=== PATIENT | male | born 1955 | race Caucasian/White ===

== ENCOUNTER 2017-04-02 18:49 | Inpatient (IN) | payer BC, MEDICAID ==
[~2017-04-02] VITALS: Ht 152.4 cm; Wt 101.5 kg
[2017-04-02 18:55] VITALS: Ht 152.4 cm; Wt 101.5 kg
[2017-04-02] MEDS ORDERED: SOD CHLORIDE 0.9% 1,000 ML IV STA (19:56)
[2017-04-02] MEDS ORDERED: ONDANSETRON 4 MG INJ IV STA ×2 (19:56→21:38)
[2017-04-02] MEDS ORDERED: FAMOTIDINE 20 MG INJ INJ STA (19:56)
[2017-04-02 20:27] LABS: ADD SCAN DIFF NO
[2017-04-02 20:30] LABS: BASOPHILS % 0.2 % (0.0-2.0); EOSINOPHILS % 0.1 % (0.0-7.0); HEMATOCRIT 41.7 % (42.0-52.0); HEMOGLOBIN 13.9 g/dl (14.0-18.0); LYMPHOCYTES # 2.3 10^3/ul (0.8-2.9); LYMPHOCYTES % 14.5 % (15.0-51.0); MEAN CORPUSCULAR HEMOGLOBIN 30.6 pg (29.0-33.0); MEAN CORPUSCULAR HGB CONC 33.3 g/dl (32.0-37.0); MEAN CORPUSCULAR VOLUME 91.9 fl (82.0-101.0); MEAN PLATELET VOLUME 9.7 fl (7.4-10.4); MONOCYTE # 1.4 10^3/ul (0.3-0.9); MONOCYTES % 9.1 % (0.0-11.0); NEUTROPHIL # 11.7 10^3/ul (1.6-7.5); NEUTROPHILS % 75.5 % (39.0-77.0); PLATELET COUNT 344 10^3/UL (140-415); RED BLOOD COUNT 4.54 10^6/ul (4.70-6.10); RED CELL DISTRIBUTION WIDTH 13.5 % (11.5-14.5); WHITE BLOOD COUNT 15.5 10^3/ul (4.8-10.8)
[2017-04-02 20:46] LABS: INR 0.98
[2017-04-02] MEDS ORDERED: RANI150T5 PO (20:46)
[2017-04-02] MEDS ORDERED: FOLI-49 PO (20:46)
[2017-04-02 20:47] LABS: PARTIAL THROMBOPLASTIN TIME 26.1 Sec (25.0-35.0)
[2017-04-02] MEDS ORDERED: ASPI-664 PO (20:47)
[2017-04-02] MEDS ORDERED: SIMV40TA2 PO (20:47)
[2017-04-02] MEDS ORDERED: METO50TA16 PO (20:48)
[2017-04-02] MEDS ORDERED: CHOL20003 PO (20:49)
[2017-04-02 20:51] LABS: ALANINE AMINOTRANSFERASE 29 IU/L (13-69); ALBUMIN 4.6 g/dl (3.3-4.9); ALBUMIN/GLOBULIN RATIO 1.43; ALKALINE PHOSPHATASE 49 IU/L (42-121); ANION GAP 15 (8-16); ASPARTATE AMINO TRANSFERASE 19 IU/L (15-46); BILIRUBIN,INDIRECT 0.1 mg/dl (0-1.1); BILIRUBIN,TOTAL 0.1 mg/dl (0.2-1.3); BLOOD UREA NITROGEN 35 mg/dl (7-20); CALCIUM 9.7 mg/dl (8.4-10.2); CARBON DIOXIDE 26 mmol/L (21-31); CHLORIDE 103 mmol/L (97-110); CREATININE 1.13 mg/dl (0.61-1.24); GLUCOSE 124 mg/dl (70-220); POTASSIUM 4.6 mmol/L (3.5-5.1); SODIUM 139 mmol/L (135-144); TOTAL PROTEIN 7.8 g/dl (6.1-8.1)
[2017-04-02] MEDS ORDERED: RAMI5CAP46 PO (20:52)
[2017-04-02 21:02] LABS: TROPONIN-I < 0.012 ng/ml (0.00-0.12)
--- NOTE | 2017-04-02 21:12 | RADRPT ---
PROCEDURE: XR Chest. CLINICAL INDICATION: Upper GI bleed. TECHNIQUE: Single frontal chest x-ray. COMPARISON: [id number] FINDINGS: The patient status post sternotomy.. The heart is normal size. There is no CHF. The lungs are hyp erinflated.. Minimal bibasilar atelectasis.. There is no pleural effusion. There is no pneumothora x. The osseous structures are unremarkable. IMPRESSION: Cardiomegaly. Hyperinflation. Minimal bibasilar atelectasis RPTAT: HMVK .Roberto Dumont MD, MD Date Time Electronically viewed and signed by .Roberto Dumont MD, on 04/02/2017 21:12 .K/
[2017-04-02] MEDS ORDERED: ZOLP10TA5 PO (21:25)
--- NOTE | 2017-04-02 22:15 | RADRPT ---
PROCEDURE: CT Head without. CLINICAL INDICATION: Syncope. TECHNIQUE: The study was performed utilizing a multi-slice, multidetector CT scanner. Direct spira l 1 mm axial sections were obtained through the head without the use of intravenous contrast materia l. 1 or more of the following dose reduction techniques were utilized: Automated exposure control, adjustment of the mA and/or kV according to patient's size, iterative reconstruction technique. Co gautam and sagittal reformations were obtained. The images were reviewed on a PACS workstation. RADIATION DOSE: CTDIvol: 43.4 mGyDLP: 720.2 mGy-cm COMPARISON: No prior studies are available for comparison. FINDINGS: There is no intracranial hemorrhage, extra-axial fluid collection, mass lesion, midline shift or hyd rocephalus. There is mild prominence of the cerebral sulci, lateral and third ventricles, within no rmal limits for age. There are mild atherosclerotic calcifications of the parasellar internal carot id arteries. The white matter is unremarkable. The ríos-white matter differentiation is preserved. The basal cisterns are patent. The midline structures are intact. The orbits, calvarium and extr acranial soft tissues are normal in appearance. The visualized paranasal sinuses, mastoid air cells and middle ear cavities are normally aerated. IMPRESSION: 1. No acute intracranial abnormality. No intracranial hemorrhage, extra-axial fluid collection, ma ss lesion or hydrocephalous. 2. Mild peripheral and central cerebral volume loss, within normal limits for age. RPTAT: HGAS .Tavo Garcia MD, Date Time Electronically viewed and signed by .Tavo Garcia MD, on 04/02/2017 22:15 .S/
--- NOTE | 2017-04-02 22:22 | RADRPT ---
PROCEDURE: CT abdomen and pelvis without contrast. CLINICAL INDICATION: Hematemesis TECHNIQUE: CT scan of the abdomen and pelvis without contrast was performed and is reconstructed a t 2.5 mm contiguous axial intervals from the dome of the diaphragm to the inferior pubic rami.. The patient was scanned without intravenous contrast. Sagittal and coronal reformatted images were obt ained from the axial source images. The calculated radiation dose measures of 1136 mGy centimeters. The CTDI measures 19 mGy. COMPARISON: None. FINDINGS: The lung bases are clear of any infiltrate or nodule. No effusion is seen. There is a left diaphrag matic hernia containing fat. The patient is post CABG. The liver is of normal size, contour and attenuation with no mass or ductal dilatation. No gallston es are visualized. No splenic, adrenal or pancreatic abnormalities present. Kidneys are of normal size and contour. No hydronephrosis, calculus or solid masses seen. There is a 15 mm cortical cyst in the lower pole of the left kidney. Ureters are of normal course and calibe r with no stone. No bladder mass or stone is present. Prostate and seminal vesicles are normal. There is no aneurysm. Mural calcification is seen in the aorta and iliac arteries. No adenopathy i s present. No bowel mass or obstruction is present. The appendix is normal. No phlegmon, ascites or pneumop eritoneum is visualized. The osseous structures are intact. IMPRESSION: No evidence of urolithiasis, obstructive uropathy, diverticulitis or appendicitis. No mass or adenop athy. Left diaphragmatic hernia containing fat. Vascular calcifications. Left renal cyst. .Sotero Phan MD, MD Date Time Electronically viewed and signed by .Sotero Phan MD, MD on 04/02/2017 22:22 .A/
--- NOTE | 2017-04-02 23:44 | ERA ---
ER Documentation Chief Complaint Date/Time DATE: 04/02/17 TIME: 23:35 Chief Complaint vomited blood dark colored 4x the whole day HPI 61-year-old male presented with family for episode of vomiting this morning during which the patient had syncope for which it took greater than 2 minutes before he became conscious again. He did not hit his head at the time. He has had 4 episodes of vomiting today. Currently has nausea the first vomiting was his food. Subsequent to that there was bright red blood and after that there was darker blood that was vomited. estimates that it was a fairly large amount of approximately 2 inches of a bucket. Patient does take Motrin twice a day for chronic pains. Denies chest pain shortness of breath. Does not have abdominal pain currently. ROS All systems reviewed and are negative except as per history of present illness. Medications Home Meds Reported Medications Zolpidem Tartrate* (Zolpidem Tartrate*) 10 Mg Tablet, 10 MG PO QHS Y for INSOMNIA, #30 TAB 04/02/17 Ramipril (Ramipril) 5 Mg Capsule, 2.5 MG PO DAILY, CAP 04/02/17 Cholecalciferol (Vitamin D3) (VITAMIN D-3) 2,000 Unit Capsule, 2000 UNIT PO DAILY, CAP 04/02/17 Metoprolol Succinate* (Toprol XL*) 50 Mg Tab.er.24h, 50 MG PO DAILY, #30 TAB 04/02/17 Aspirin* (Aspirin* EC) 81 Mg Tablet.dr, 81 MG PO DAILY, TAB 04/02/17 Simvastatin* (Zocor*) 40 Mg Tablet, 40 MG PO QHS, #30 TAB 04/02/17 Ranitidine Hcl* (Ranitidine Hcl*) 150 Mg Tablet, 150 MG PO Q12, #60 TAB 04/02/17 Folic Acid* (Folic Acid*) 1 Mg Tablet, 1 MG PO DAILY, TAB 04/02/17 Allergies Allergies: Coded Allergies: No Known Allergy (Verified , 04/02/17) PMhx/Soc History of Surgery: Yes (quad bypass 2007) Hx Cardiac Disorders: Yes (htn) Hx Alcohol Use: No Hx Substance Use: No Hx Tobacco Use: No Smoking Status: Unknown if ever smoked Physical Exam Vitals Vital Signs Date Time Temp Pulse Resp B/P Pulse Ox O2 Delivery O2 Flow Rate FiO2 04/02/17 22:48 77 20 100 Nasal Cannula 2.0 04/02/17 20:33 Nasal Cannula 2 04/02/17 18:55 98.5 108 20 140/76 97 Physical Exam Const: [] Mild distress, appears uncomfortable Head: Atraumatic Eyes: Normal Conjunctiva, EOMI, PRL ENT: Normal External Ears, Nose and Mouth. Neck: Full range of motion..~ No meningismus. Resp: Clear to auscultation bilaterally Cardio: Regular rate and rhythm, no murmurs Abd: Soft, non tender, non distended. Normal bowel sounds Skin: No petechiae or rashes Back: No midline or flank tenderness Ext: No cyanosis, or edema Neur: Awake and alert and oriented 3, no focal deficits, cranial nerves II through XII intact, no cerebellar deficits Psych: Normal Mood and Affect Result Diagram: 04/02/17200804/02/172008 Results 24 hrs Laboratory Tests Test 04/02/17 20:09 White Blood Count 15.510^3/ul Red Blood Count 4.5410^6/ul Hemoglobin 13.9g/dl Hematocrit 41.7% Mean Corpuscular Volume 91.9fl Mean Corpuscular Hemoglobin 30.6pg Mean Corpuscular Hemoglobin Concent 33.3g/dl Red Cell Distribution Width 13.5% Platelet Count 56534^3/UL Mean Platelet Volume 9.7fl Neutrophils % 75.5% Lymphocytes % 14.5% Monocytes % 9.1% Eosinophils % 0.1% Basophils % 0.2% Nucleated Red Blood Cells % 0.0/100WBC Neutrophils # 11.710^3/ul Lymphocytes # 2.310^3/ul Monocytes # 1.410^3/ul Eosinophils # 0.010^3/ul Basophils # 0.010^3/ul Nucleated Red Blood Cells # 0.010^3/ul Prothrombin Time 13.0Sec Prothrombin Time Ratio 1.0 INR International Normalized Ratio 0.98 Activated Partial Thromboplast Time 26.1Sec Sodium Level 139mmol/L Potassium Level 4.6mmol/L Chloride Level 103mmol/L Carbon Dioxide Level 26mmol/L Anion Gap 15 Blood Urea Nitrogen 35mg/dl Creatinine 1.13mg/dl Glucose Level 124mg/dl Calcium Level 9.7mg/dl Total Bilirubin 0.1mg/dl Direct Bilirubin 0.00mg/dl Indirect Bilirubin 0.1mg/dl Aspartate Amino Transf (AST/SGOT) 19IU/L Alanine Aminotransferase (ALT/SGPT) 29IU/L Alkaline Phosphatase 49IU/L Troponin I < 0.012ng/ml Total Protein 7.8g/dl Albumin 4.6g/dl Globulin 3.20g/dl Albumin/Globulin Ratio 1.43 Current Medications Medications (Trade) Dose Ordered Sig/Venu Route PRN Reason Start Time Stop Time Status Last Admin Dose Admin Sodium Chloride (NS) 1,000 ml @ 1,000 mls/hr Q1H STAT IV 04/02/17 19:56 04/02/17 20:55 DC 04/02/17 20:16 Famotidine (Pepcid Iv) 20 mg ONCE STAT INJ 04/02/17 19:56 04/02/17 19:58 DC 04/02/17 20:16 Ondansetron HCl (Zofran Inj) 4 mg ONCE STAT IV 04/02/17 19:56 04/02/17 19:58 DC 04/02/17 20:16 Ondansetron HCl (Zofran Inj) 4 mg ONCE STAT IV 04/02/17 21:38 04/02/17 21:39 DC 04/02/17 21:42 Procedures/MDM Acute upper GI bleed and syncope with a history of frequent NSAID use. No current arrhythmias found. Hemoglobin is low but not requiring transfusion. Patient was hydrated with normal saline given Zofran. Hemoglobin value will likely be lower because of acute GI bleeding on recheck. No signs of cardiac arrhythmias in the emergency room. Does have a elevated BUN consistent with dehydration or GI bleed. Was given Pepcid IV. Concerning story of syncope with difficulty arousing. No trauma. Normal neurological exam currently. Spoke with Dr. Marion who will be admitting the patient to telemetry for further monitoring and workup. Will likely receive EGD. Patient does have leukocytosis I reviewed his EMR from prior visit he had high white blood cell count. This is possibly chronic. No current signs of infection EKG interpretation normal sinus rhythm rate of 94, normal axis, no ST or T-wave changes concerning for acute ischemia, nonspecific ST and T-wave abnormality. youth nutritional monitor interpretation: Normal sinus rhythm with no arrhythmias observed Chest x-ray interpretation: I see no acute process, I see no pulmonary edema, no pneumothorax, no infiltrates, no fractures CT head interpretation: I see no acute process, I see no hemorrhage no mass- effect no midline shift no skull fracture CT abdomen pelvis interpretation: Fat-containing left diaphragmatic hernia. I see no other acute process. I see no obstruction, no free air, no abnormal fat stranding, no fractures Departure Diagnosis: Primary Impression: Acute upper GI hemorrhage Additional Impressions: Syncope Vomiting Condition: Stable CAILIN DAI DO April 02, 2017 23:44
[2017-04-03] VITALS (11 sets, daily range): BP systolic 121–143; BP diastolic 68–76; PULSE 72–84; RESP 18–20
[2017-04-03 07:35] LABS: ADD SCAN DIFF NO
[2017-04-03 07:40] LABS: BASOPHIL # 0.1 10^3/ul (0.0-0.1); BASOPHILS % 0.4 % (0.0-2.0); EOSINOPHILS # 0.2 10^3/ul (0.0-0.5); EOSINOPHILS % 1.4 % (0.0-7.0); HEMATOCRIT 34.9 % (42.0-52.0); HEMOGLOBIN 11.4 g/dl (14.0-18.0); LYMPHOCYTES # 2.9 10^3/ul (0.8-2.9); LYMPHOCYTES % 21.6 % (15.0-51.0); MEAN CORPUSCULAR HEMOGLOBIN 30.4 pg (29.0-33.0); MEAN CORPUSCULAR HGB CONC 32.7 g/dl (32.0-37.0); MEAN CORPUSCULAR VOLUME 93.1 fl (82.0-101.0); MEAN PLATELET VOLUME 9.8 fl (7.4-10.4); MONOCYTE # 1.1 10^3/ul (0.3-0.9); MONOCYTES % 8.5 % (0.0-11.0); NEUTROPHILS % 67.6 % (39.0-77.0); PLATELET COUNT 264 10^3/UL (140-415); RED BLOOD COUNT 3.75 10^6/ul (4.70-6.10); RED CELL DISTRIBUTION WIDTH 13.7 % (11.5-14.5); WHITE BLOOD COUNT 13.3 10^3/ul (4.8-10.8)
[2017-04-03 08:03] LABS: ALBUMIN 3.5 g/dl (3.3-4.9); POTASSIUM 3.8 mmol/L (3.5-5.1)
[2017-04-03 08:06] LABS: ALBUMIN/GLOBULIN RATIO 1.29; BILIRUBIN,INDIRECT 0.3 mg/dl (0-1.1); BILIRUBIN,TOTAL 0.3 mg/dl (0.2-1.3); CALCIUM 8.8 mg/dl (8.4-10.2); TOTAL PROTEIN 6.2 g/dl (6.1-8.1)
[2017-04-03] MEDS: FOLIC ACID 1 MG TAB PO SCH (08:50)
[2017-04-03] MEDS: BENAZEPRIL 10 MG TAB PO SCH (08:50)
[2017-04-03] MEDS: METOPROLOL (XL) 50 MG TAB PO SCH ×2 (08:50→08:51)
[2017-04-03] MEDS: CHOLECALCIFEROL 2,000 UNIT CAP PO SCH (08:51)
[2017-04-03] MEDS: RANITIDINE 150 MG TAB PO SCH ×2 (08:51→20:50)
[2017-04-03] MEDS ORDERED: ONDANSETRON 4 MG INJ IV PRN (12:00)
--- NOTE | 2017-04-03 12:19 | HP ---
DATE OF ADMISSION: 04/03/2017 CHIEF COMPLAINT: Hematemesis. HISTORY OF PRESENT ILLNESS: The patient is a 61-year-old gentleman with a history of coronary arter y disease, status post CABG back in 2008, hypertension, dyslipidemia. The patient yesterday morning woke up at 4:00 and started vomiting. The patient initially had gastric contents and subsequently had dark vomitus and finally started vomiting bright red blood. The patient denies any history of m eligio or rectal bleed. No history of anginal chest pain. No history of abdominal pain. No history of recent fever or chills. The patient was slightly diaphoretic. The patient did have an episode of syncope while he was throwing up. Syncope was preceded with dizziness. No previous history of s yncope. No previous history of shortness of breath. No history of cough. No history of leg pain o r leg edema. No history of focal weakness. No history of paresthesias. Rest of review of systems was unremarkable. The patient was seen in the ER, was noted to have white count of 15.5, hemoglobin 13.9, but repeat hemoglobin was down to 11.4. The patient since admission has not had any further hematemesis and vital signs have remained stable. The patient is not tachycardic or hypotensive. PAST MEDICAL HISTORY: As stated above. FAMILY HISTORY: Noncontributory. SOCIAL HISTORY: No smoking, no alcohol. ALLERGIES: NONE. PHYSICAL EXAMINATION: GENERAL: The patient is conscious, awake, alert, fairly oriented. VITAL SIGNS: Temperature 97.4, pulse 78, respirations 20, blood pressure 140/74, O2 saturation 98% on room air. HEENT: Atraumatic, normocephalic. Conjunctivae and lids normal. Oropharynx clear. NECK: Supple. No mass, no thyromegaly. CHEST: Fairly clear. No use of accessory muscles. CARDIOVASCULAR: S1, S2 normal. No murmur, gallop, or rub. ABDOMEN: Soft, nondistended, nontender. Bowel sounds present. EXTREMITIES: No leg edema. Pedal pulses palpable. SKIN: Without acute rash or ulcer. NEUROLOGIC: The patient is awake, alert, fairly oriented with no gross focal deficit. LABORATORY DATA: WBC 15.5, hemoglobin 13.9, platelets 244. Sodium 139, potassium 4.6, BUN 35, crea tinine 1.1. Chest x-ray unremarkable. CT of the abdomen and pelvis was also unremarkable except fo r left diaphragmatic hernia containing fat. IMPRESSION: 1. Upper gastrointestinal bleed. 2. Coronary artery disease, status post coronary artery bypass graft. 3. Hypertension. 4. Dyslipidemia. PLAN: The patient admitted on telemetry floor. The patient will be kept n.p.o. He will be given I V fluid, IV Protonix, IV Zofran. We will use SCD for DVT prophylaxis. We will monitor H and H. Th e patient's syncope was due to vasovagal reaction. We will obtain echocardiogram to assess LV funct ion and valvular abnormality. GI consult with Dr. Tamayo has been obtained. Plan of care discussed with nursing staff and the patient's . Dictated By: ELISSA DAWSON/ELBA Conf#: [id number] DID#: [id number]
[2017-04-03] MEDS: D5W-0.45 NACL + KCL 20 MEQ 1,000 ML IV SCH ×2 (13:57→22:00)
[2017-04-03] MEDS: PANTOPRAZOLE 40 MG INJ IV SCH (18:00)
[2017-04-03] MEDS ORDERED: traMADol 50 MG TAB GTB PRN (20:00)
[2017-04-03] MEDS: ATORVASTATIN 20 MG TAB PO SCH (20:49)
--- NOTE | 2017-04-03 21:12 | RADRPT ---
Echocardiogram Report Patient Name: FAM BARRETT Gender: Male Date: 1955 Study Date: 03-Apr-2017 Superintendent: YOLANDA Beyer.[facility] Location: 5551 Ref. Physician: ELISSA MADDEN Quality: Technically Difficult Study Procedures: Transthoracic echocardiogram with complete 2D, M-Mode, and doppler examination. Indications: Syncope. 2D/M Mode Doppler Measurement Value Normal Ranges Measurement Value Normal Ranges LVIDd 2D 5.2 3.5 - 5.6 cm DEBBIE Vmax 2.0 cm2 LVIDs 2D 3.5 2.1 - 4.1 cm AV Peak Papo 1.5 m/sec FS 2D 32.2 % AV Peak PG 9.0 mmHg LVPWd 2D 1.2 0.6 - 1.1 cm LVOT Peak Papo 1.0 m/sec IVSd 2D 1.2 0.6 - 1.1 cm LVOT Peak PG 4.0 mmHg IVS/LVPW 2D 1.0 MV E Peak Papo 0.9 m/sec AoR Diam 2D 2.3 2.0 - 3.7 cm MV A Peak Papo 1.0 m/sec LA/Ao 2D 1 0 - 1 MV E/A 0.9 EDV 2D 141.0 cm3 MV Decel Time 254 msec ESV 2D 44.0 cm3 MV E/A 0.9 LA Dimen 2D 3.2 2.3 - 4.0 cm TR Peak Papo 2.3 m/sec LVOT Diam 2.0 cm TR Peak PG 21.0 mmHg LVOT Area 3.1 cm2 RVSP 24.0 mmHg Findings Left Ventricle: Lower limits of normal systolic function. Normal left ventricular cavity size. Mild concentric left ventricular hypertrophy. Ejection fraction is visually estimated at 5055 %. Tissue Doppler/Mitral Doppler indices are consistent with impaired relaxation (Stage I diastolic dysfunction). Right Ventricle: Normal right ventricular size. Normal right ventricular systolic function. Left Atrium: The left atrium is normal in size. Right Atrium: The right atrium is normal in size. Mitral Valve: Mild mitral leaflet calcification. Mild mitral annular calcification. Mild mitral valve regurgitation. Aortic Valve: Normal appearance of the aortic valve. No significant aortic stenosis or insufficiency. Tricuspid Valve: Normal appearance of the tricuspid valve. Normal right ventricular systolic pressure. Estimated peak PA systolic pressure 24 mmHg. There is trace to mild tricuspid regurgitation. Pulmonic Valve: Pulmonic valve not well visualized. Pericardium: Normal pericardium with no significant pericardial effusion. Aorta: Normal aortic root. IVC: The IVC is not well visualized. Conclusions 1.Lower limits of normal systolic function. Normal left ventricular cavity size. Mild concentric left ventricular hypertrophy. Ejection fraction is visually estimated at 50-55 %. Tissue Doppler/Mitral Doppler indices are consistent with impaired relaxation (Stage I diastolic dysfunction). 2.Mild mitral leaflet calcification. Mild mitral annular calcification. Mild mitral valve regurgitation. 3.Normal appearance of the tricuspid valve. Normal right ventricular systolic pressure. Estimated peak PA systolic pressure 24 mmHg. There is trace to mild tricuspid regurgitation. Electronically Signed By: Jcarlos Ibarra 03-Apr-2017 21:11:40 -0700 Patient Name: FAM BARRETT Study Date: 03-Apr-2017 [id number]
--- NOTE | 2017-04-03 21:21 | CONS ---
DATE OF ADMISSION: 04/03/2017 DATE OF CONSULTATION: TYPE OF CONSULTATION: Gastroenterology. Dear Dr. Madden: Thank you for asking me to see Mr. Escamilla in GI consultation. As you know, the patient is a 61-yea r-old white gentleman who at this time is admitted to the hospital because of history of hematemesis . He said he vomited coffee-ground material and bright red bleeding a couple days ago, and, hence, he is admitted to the hospital. He is alert. He is obese. He does have history of coronary artery disease. From the GI standpoint, no abdominal pain, no nausea, no vomiting except hematemesis. No bleeding from the rectum, no history of passing black stools. PAST MEDICAL HISTORY: History of coronary artery disease, myocardial infarction. REVIEW OF SYSTEM: Hypertension, dyslipidemia, coronary artery disease. SOCIAL HISTORY: The patient does not smoke, does not drink. PHYSICAL EXAMINATION: GENERAL: The patient is a 61-year-old white gentleman who at this time is alert and obese. VITAL SIGNS: Blood pressure is 121/68, temperature is 98.3. LABORATORY WORKUP: Hemoglobin dropped to 11.4 from 13.9, WBC is 13,300, platelet count 264,000. Th e potassium 3.8, albumin is 3.5. The chest x-ray shows cardiomegaly. CAT scan of the abdomen shows evidence of no kidney stones, left diaphragmatic hernia, left renal cysts. CLINICAL IMPRESSION: 1. Upper gastrointestinal bleeding, rule out peptic ulcer disease, gastritis, esophagitis, Lorena- Trimble tear. 2. History of coronary artery disease. PLAN: At this time, recommend upper endoscopy, continue Protonix, and I will be happy to follow thi s patient along with you. Once again, doctor, thank you for this consultation. Dictated By: NOMAN JUSTICE MD NC/NTS Conf#: [id number] DID#: [id number] CC: COREY ANDINO MD; ELISSA MADDEN MD;*EndCC*
[2017-04-03] MEDS: ZOLPIDEM 5 MG TAB PO PRN (23:03)
[2017-04-04] VITALS (13 sets, daily range): BP systolic 119–155; BP diastolic 58–89; PULSE 68–81; RESP 16–20
[2017-04-04] MEDS: D5W-0.45 NACL + KCL 20 MEQ 1,000 ML IV SCH ×2 (03:35→18:00)
[2017-04-04] MEDS: PANTOPRAZOLE 40 MG INJ IV SCH ×2 (05:52→18:40)
[2017-04-04 07:24] LABS: ADD SCAN DIFF NO
[2017-04-04 07:35] LABS: BASOPHILS % 0.3 % (0.0-2.0); EOSINOPHILS # 0.5 10^3/ul (0.0-0.5); EOSINOPHILS % 5.2 % (0.0-7.0); HEMATOCRIT 30.5 % (42.0-52.0); HEMOGLOBIN 9.8 g/dl (14.0-18.0); LYMPHOCYTES # 1.7 10^3/ul (0.8-2.9); LYMPHOCYTES % 19.3 % (15.0-51.0); MEAN CORPUSCULAR HEMOGLOBIN 30.2 pg (29.0-33.0); MEAN CORPUSCULAR HGB CONC 32.1 g/dl (32.0-37.0); MEAN CORPUSCULAR VOLUME 93.8 fl (82.0-101.0); MEAN PLATELET VOLUME 9.6 fl (7.4-10.4); MONOCYTE # 0.7 10^3/ul (0.3-0.9); MONOCYTES % 7.9 % (0.0-11.0); NEUTROPHILS % 66.9 % (39.0-77.0); PLATELET COUNT 223 10^3/UL (140-415); RED BLOOD COUNT 3.25 10^6/ul (4.70-6.10); RED CELL DISTRIBUTION WIDTH 13.6 % (11.5-14.5); WHITE BLOOD COUNT 8.9 10^3/ul (4.8-10.8)
[2017-04-04 07:53] LABS: CALCIUM 8.6 mg/dl (8.4-10.2); CREATININE 0.9 mg/dl (0.61-1.24); POTASSIUM 4.1 mmol/L (3.5-5.1)
[2017-04-04] MEDS: RANITIDINE 150 MG TAB PO SCH ×2 (09:00→21:08)
[2017-04-04] MEDS: CHOLECALCIFEROL 2,000 UNIT CAP PO SCH (09:00)
[2017-04-04] MEDS: BENAZEPRIL 10 MG TAB PO SCH (09:00)
[2017-04-04] MEDS: METOPROLOL (XL) 50 MG TAB PO SCH ×2 (09:00)
[2017-04-04] MEDS: FOLIC ACID 1 MG TAB PO SCH (09:00)
[2017-04-04] MEDS ORDERED: PROPOFOL 20 ML ONE (12:05)
[2017-04-04] MEDS ORDERED: MIDAZOLAM 1 MG/ML 2 ML INJ ONE (12:06)
[2017-04-04] MEDS ORDERED: FENTAnyl 50 MCG/ML VIAL ONE (12:06)
--- NOTE | 2017-04-04 12:32 | PN ---
Date/Time of Note Date/Time of Note DATE: 04/04/17 TIME: 12:31 Assessment/Plan VTE Prophylaxis VTE Prophylaxis Intervention: SCD's Lines/Catheters IV Catheter Type (from Nrs): Peripheral IV Urinary Cath still in place: No Assessment/Plan Assessment/Plan 1. Upper gastrointestinal bleed. 2. Coronary artery disease, status post coronary artery bypass graft. 3. Hypertension. 4. Dyslipidemia. Subjective 24 Hr Interval Summary Free Text/Dictation Pt is undergoing EGD yuliana Tamayo now, no hematinemia reported prior to procedure per RN. Exam/Review of Systems Vital Signs Vitals Vital Signs Date Time Temp Pulse Resp B/P Pulse Ox O2 Delivery O2 Flow Rate FiO2 04/04/17 11:33 97.7 77 144/66 90 Room Air 04/04/17 11:10 17 04/02/17 22:48 2.0 Intake and Output 04/03/17 04/03/17 04/04/17 15:00 23:00 07:00 Intake Total 1810 ml 1100 ml Balance 1810 ml 1100 ml Results Result Diagram: 04/04/17 0701 04/04/17 0701 Results 24 hrs Laboratory Tests Test 04/04/17 07:01 White Blood Count 8.9 # Red Blood Count 3.25 L Hemoglobin 9.8 L Hematocrit 30.5 L Mean Corpuscular Volume 93.8 Mean Corpuscular Hemoglobin 30.2 Mean Corpuscular Hemoglobin Concent 32.1 Red Cell Distribution Width 13.6 Platelet Count 223 Mean Platelet Volume 9.6 Neutrophils % 66.9 Lymphocytes % 19.3 Monocytes % 7.9 Eosinophils % 5.2 Basophils % 0.3 Nucleated Red Blood Cells % 0.0 Neutrophils # 6.0 Lymphocytes # 1.7 Monocytes # 0.7 Eosinophils # 0.5 Basophils # 0.0 Nucleated Red Blood Cells # 0.0 Sodium Level 134 L Potassium Level 4.1 Chloride Level 103 Carbon Dioxide Level 27 Anion Gap 8 Blood Urea Nitrogen 18 # Creatinine 0.90 Glucose Level 121 Calcium Level 8.6 Medications Medications Current Medications Metoprolol Succinate (Toprol Xl) 50 mg DAILY PO ; Start 04/03/17 at 09:00 Cholecalciferol (Vitamin D) 2,000 unit DAILY PO ; Start 04/03/17 at 09:00 Folic Acid (Folic Acid) 1 mg DAILY PO ; Start 04/03/17 at 09:00 Metoprolol Succinate (Toprol Xl) 50 mg DAILY PO ; Start 04/03/17 at 09:00 Ranitidine HCl (Zantac) 150 mg Q12 PO Last administered on 04/03/17 20:50; Admin Dose 150 MG; Start 04/03/17 at 09:00 Zolpidem Tartrate (Ambien) 10 mg QHS PRN PO INSOMNIA Last administered on 23:03; Admin Dose 10 MG; Start 04/03/17 at 07:30 Benazepril HCl (Lotensin) 10 mg DAILY PO ; Start 04/03/17 at 09:00 Atorvastatin Calcium 20 mg 20 mg DAILY@21 PO Last administered on 04/03/17 20: 49; Admin Dose 20 MG; Start 04/03/17 at 21:00 Potassium Chloride/Dextrose/ Sod Cl (D5-1/2ns + KCl 20 Meq) 1,000 ml @ 100 mls/ hr Q10H IV Last administered on 04/04/17 03:35; Admin Dose 100 MLS/HR; Start 04/03/17 at 12:00 Pantoprazole (Protonix Iv) 40 mg BID@06,18 IV Last administered on 04/04/17 05 :52; Admin Dose 40 MG; Start 04/03/17 at 18:00 Ondansetron HCl (Zofran Inj) 4 mg Q4H PRN IV NAUSEA AND/OR VOMITING Last administered on 04/04/17 10:57; Admin Dose 4 MG; Start 04/03/17 at 12:00 Tramadol HCl (Ultram) 50 mg Q6H PRN GTB PAIN Last administered on 04/03/17 20: 49; Admin Dose 50 MG; Start 04/03/17 at 20:00 TRUE LEI April 04, 2017 12:32
--- NOTE | 2017-04-04 13:04 | GILP ---
DATE OF PROCEDURE: PROCEDURE: Esophagogastroduodenoscopy. SURGEON: Luis Antonio Tamayo MD PREOPERATIVE DIAGNOSIS: The patient presenting with history of hematemesis, rule out peptic ulcer d isease. POSTOPERATIVE DIAGNOSIS: Two ulcers noted in the prepyloric area, one of them is measuring at least 12 mm in diameter, the other one is about 5 mm in diameter. Biopsies were done. Hemoclips were do ne. DESCRIPTION OF PROCEDURE: After the informed written consent was obtained, the patient was asked to lie on the left lateral side. Intravenous anesthesia was given by anesthesiologist, Dr. Coronado . When the patient became somnolent, the Olympus video upper endoscope was introduced into the orop harynx, then into the esophagus. Esophagus appeared normal except minimal irritation around the GE junction. Scope at this time was advanced into the stomach. Two ulcers noted in the prepyloric are a and about a 12 mm ulcer was noted to be one of the two ulcers. The other one is about 5 to 6 mm i n diameter. There is evidence of previous bleeding noted. Two tiny biopsies were obtained just to make sure there is no cancer. However, after the biopsy, 2 hemoclips were applied, and 2 biopsies w ere done and 1 hemoclip was applied. No bleeding noted. Duodenum appeared normal up to the end of the third portion. At this time, biopsy was done from the antrum, lesser curvature and the fundus t o rule out H. pylori infection. At this time, endoscope was withdrawn. On the way out, no addition al abnormalities detected and the procedure was terminated. PLAN: Recommend wait for the pathology report. Recommend omeprazole 40 mg twice a day for 2 months and then repeat endoscopy to do the biopsy of the gastric ulcers. Dictated By: LUIS ANTONIO ANDRADE/NTS Conf#: [id number] DID#: [id number] CC: ELISSA MADDEN MD; LUIS ANTONIO TAMAYO MD;*EndCC*
[2017-04-04] MEDS: ATORVASTATIN 20 MG TAB PO SCH (21:08)
[2017-04-04] MEDS: ZOLPIDEM 5 MG TAB PO PRN (22:25)
[2017-04-05] VITALS (12 sets, daily range): BP systolic 107–153; BP diastolic 71–80; PULSE 63–70; RESP 17–20
[2017-04-05] MEDS: D5W-0.45 NACL + KCL 20 MEQ 1,000 ML IV SCH ×3 (05:38→23:05)
[2017-04-05] MEDS: PANTOPRAZOLE 40 MG INJ IV SCH ×3 (05:38→23:03)
[2017-04-05] MEDS: BENAZEPRIL 10 MG TAB PO SCH (08:33)
[2017-04-05] MEDS: RANITIDINE 150 MG TAB PO SCH ×2 (08:33→23:03)
[2017-04-05] MEDS: METOPROLOL (XL) 50 MG TAB PO SCH ×2 (08:33→08:35)
[2017-04-05] MEDS: CHOLECALCIFEROL 2,000 UNIT CAP PO SCH (08:34)
[2017-04-05] MEDS: FOLIC ACID 1 MG TAB PO SCH (08:34)
[2017-04-05 09:02] LABS: ADD SCAN DIFF NO
[2017-04-05 09:08] LABS: BASOPHILS % 0.3 % (0.0-2.0); EOSINOPHILS # 0.5 10^3/ul (0.0-0.5); EOSINOPHILS % 5.2 % (0.0-7.0); HEMATOCRIT 28.4 % (42.0-52.0); HEMOGLOBIN 9.5 g/dl (14.0-18.0); LYMPHOCYTES # 1.7 10^3/ul (0.8-2.9); LYMPHOCYTES % 19.4 % (15.0-51.0); MEAN CORPUSCULAR HEMOGLOBIN 31.1 pg (29.0-33.0); MEAN CORPUSCULAR HGB CONC 33.5 g/dl (32.0-37.0); MEAN CORPUSCULAR VOLUME 93.1 fl (82.0-101.0); MEAN PLATELET VOLUME 9.9 fl (7.4-10.4); MONOCYTE # 0.8 10^3/ul (0.3-0.9); MONOCYTES % 9.3 % (0.0-11.0); NEUTROPHIL # 5.7 10^3/ul (1.6-7.5); NEUTROPHILS % 65.5 % (39.0-77.0); PLATELET COUNT 246 10^3/UL (140-415); RED BLOOD COUNT 3.05 10^6/ul (4.70-6.10); RED CELL DISTRIBUTION WIDTH 13.2 % (11.5-14.5); WHITE BLOOD COUNT 8.7 10^3/ul (4.8-10.8)
[2017-04-05 09:42] LABS: CALCIUM 8.6 mg/dl (8.4-10.2); CREATININE 0.9 mg/dl (0.61-1.24); POTASSIUM 3.9 mmol/L (3.5-5.1)
--- NOTE | 2017-04-05 16:00 | PN ---
Date/Time of Note Date/Time of Note DATE: 04/05/17 TIME: 15:58 Assessment/Plan VTE Prophylaxis VTE Prophylaxis Intervention: other Lines/Catheters IV Catheter Type (from [facility]): [place] Lock Urinary Cath still in place: No Assessment/Plan Assessment/Plan 1. Upper gastrointestinal bleed- none reported yet. - per GI - clear liquid diet- advance per GI 2. Coronary artery disease, status post coronary artery bypass graft. 3. Hypertension. 4. Dyslipidemia. femi Fritz Subjective 24 Hr Interval Summary Free Text/Dictation no gi bleed reported, afebrile, dw staff, sp EGD- awaiting pathology report Exam/Review of Systems Vital Signs Vitals Vital Signs Date Time Temp Pulse Resp B/P Pulse Ox O2 Delivery O2 Flow Rate FiO2 04/05/17 15:50 97.6 75 17 145/80 99 04/04/17 12:35 Room Air 04/04/17 12:20 10 Intake and Output 04/04/17 04/04/17 04/05/17 14:59 22:59 06:59 Intake Total 0 ml 1000 ml 2800 ml Output Total 600 ml Balance 0 ml 400 ml 2800 ml Exam Constitutional: alert, oriented Respiratory: clear to auscultation Cardiovascular: regular rate and rhythm Gastrointestinal: non-tender, soft Neurological: nl mental status, nl speech Results Result Diagram: 04/05/17 0725 04/05/17 0725 Results 24 hrs Laboratory Tests Test 04/05/17 07:25 White Blood Count 8.7 Red Blood Count 3.05 L Hemoglobin 9.5 L Hematocrit 28.4 L Mean Corpuscular Volume 93.1 Mean Corpuscular Hemoglobin 31.1 Mean Corpuscular Hemoglobin Concent 33.5 Red Cell Distribution Width 13.2 Platelet Count 246 Mean Platelet Volume 9.9 Neutrophils % 65.5 Lymphocytes % 19.4 Monocytes % 9.3 Eosinophils % 5.2 Basophils % 0.3 Nucleated Red Blood Cells % 0.0 Neutrophils # 5.7 Lymphocytes # 1.7 Monocytes # 0.8 Eosinophils # 0.5 Basophils # 0.0 Nucleated Red Blood Cells # 0.0 Sodium Level 135 Potassium Level 3.9 Chloride Level 103 Carbon Dioxide Level 26 Anion Gap 10 Blood Urea Nitrogen 11 Creatinine 0.90 Glucose Level 112 Calcium Level 8.6 Medications Medications Current Medications Metoprolol Succinate (Toprol Xl) 50 mg DAILY PO Last administered on 04/05/17 08:33; Admin Dose 50 MG; Start 04/03/17 at 09:00 Cholecalciferol (Vitamin D) 2,000 unit DAILY PO Last administered on 04/05/17 08:34; Admin Dose 2,000 UNIT; Start 04/03/17 at 09:00 Folic Acid (Folic Acid) 1 mg DAILY PO Last administered on 04/05/17 08:34; Admin Dose 1 MG; Start 04/03/17 at 09:00 Metoprolol Succinate (Toprol Xl) 50 mg DAILY PO ; Start 04/03/17 at 09:00 Ranitidine HCl (Zantac) 150 mg Q12 PO Last administered on 04/05/17 08:33; Admin Dose 150 MG; Start 04/03/17 at 09:00 Zolpidem Tartrate (Ambien) 10 mg QHS PRN PO INSOMNIA Last administered on 22:25; Admin Dose 10 MG; Start 04/03/17 at 07:30 Benazepril HCl (Lotensin) 10 mg DAILY PO Last administered on 04/05/17 08:33; Admin Dose 10 MG; Start 04/03/17 at 09:00 Atorvastatin Calcium 20 mg 20 mg DAILY@21 PO Last administered on 04/04/17 21: 08; Admin Dose 20 MG; Start 04/03/17 at 21:00 Potassium Chloride/Dextrose/ Sod Cl (D5-1/2ns + KCl 20 Meq) 1,000 ml @ 100 mls/ hr Q10H IV Last administered on 04/05/17 05:38; Admin Dose 100 MLS/HR; Start 04/03/17 at 12:00 Pantoprazole (Protonix Iv) 40 mg BID@06,18 IV Last administered on 04/05/17 05 :38; Admin Dose 40 MG; Start 04/03/17 at 18:00 Ondansetron HCl (Zofran Inj) 4 mg Q4H PRN IV NAUSEA AND/OR VOMITING Last administered on 04/04/17 10:57; Admin Dose 4 MG; Start 04/03/17 at 12:00 Tramadol HCl (Ultram) 50 mg Q6H PRN GTB PAIN Last administered on 04/03/17 20: 49; Admin Dose 50 MG; Start 04/03/17 at 20:00 VANITA BROWN April 05, 2017 16:00
[2017-04-05] MEDS: ATORVASTATIN 20 MG TAB PO SCH (23:03)
[2017-04-05] MEDS: ZOLPIDEM 5 MG TAB PO PRN (23:10)
[2017-04-06] VITALS (11 sets, daily range): BP systolic 123–138; BP diastolic 60–72; PULSE 61–71; RESP 17–18
[2017-04-06] MEDS: CHOLECALCIFEROL 2,000 UNIT CAP PO SCH (08:03)
[2017-04-06] MEDS: RANITIDINE 150 MG TAB PO SCH (08:03)
[2017-04-06] MEDS: FOLIC ACID 1 MG TAB PO SCH (08:04)
[2017-04-06] MEDS: METOPROLOL (XL) 50 MG TAB PO SCH ×2 (08:04→08:05)
[2017-04-06] MEDS: BENAZEPRIL 10 MG TAB PO SCH (08:04)
[2017-04-06] MEDS: D5W-0.45 NACL + KCL 20 MEQ 1,000 ML IV SCH (08:05)
[2017-04-06 09:02] LABS: ADD SCAN DIFF NO; POTASSIUM 3.9 mmol/L (3.5-5.1)
[2017-04-06 09:05] LABS: CREATININE 0.99 mg/dl (0.61-1.24)
--- NOTE | 2017-04-06 11:02 | PN ---
Date/Time of Note Date/Time of Note DATE: 04/06/17 TIME: 10:59 Assessment/Plan VTE Prophylaxis VTE Prophylaxis Intervention: other Lines/Catheters IV Catheter Type (from [facility]): Peripheral IV Urinary Cath still in place: No Assessment/Plan Assessment/Plan 1. Upper gastrointestinal bleed- none reported yet. - per GI- awaiting pathology report. - soft diet per GI 2. Coronary artery disease, status post coronary artery bypass graft. 3. Hypertension. 4. Dyslipidemia. femi Fritz Subjective 24 Hr Interval Summary Free Text/Dictation feels better- denies any GI bleed, tolerating diet. femi staff- no new issues reported. Exam/Review of Systems Vital Signs Vitals Vital Signs Date Time Temp Pulse Resp B/P Pulse Ox O2 Delivery O2 Flow Rate FiO2 04/06/17 08:09 67 04/06/17 07:37 97.8 17 138/72 95 04/04/17 12:35 Room Air 04/04/17 12:20 10 Intake and Output 04/05/17 04/05/17 04/06/17 15:00 23:00 07:00 Intake Total 2400 ml 600 ml Balance 2400 ml 600 ml Exam Constitutional: alert, oriented Neck: non-tender Respiratory: clear to auscultation Gastrointestinal: non-tender, soft Results Result Diagram: 04/05/17 0725 04/06/17 0715 Results 24 hrs Laboratory Tests Test 04/06/17 07:15 Sodium Level 139 Potassium Level 3.9 Chloride Level 101 Carbon Dioxide Level 27 Anion Gap 15 Blood Urea Nitrogen 8 Creatinine 0.99 Glucose Level 113 Calcium Level 9.0 Medications Medications Current Medications Metoprolol Succinate (Toprol Xl) 50 mg DAILY PO Last administered on 04/06/17 08:04; Admin Dose 50 MG; Start 04/03/17 at 09:00 Cholecalciferol (Vitamin D) 2,000 unit DAILY PO Last administered on 04/06/17 08:03; Admin Dose 2,000 UNIT; Start 04/03/17 at 09:00 Folic Acid (Folic Acid) 1 mg DAILY PO Last administered on 04/06/17 08:04; Admin Dose 1 MG; Start 04/03/17 at 09:00 Metoprolol Succinate (Toprol Xl) 50 mg DAILY PO ; Start 04/03/17 at 09:00 Ranitidine HCl (Zantac) 150 mg Q12 PO Last administered on 04/06/17 08:03; Admin Dose 150 MG; Start 04/03/17 at 09:00 Zolpidem Tartrate (Ambien) 10 mg QHS PRN PO INSOMNIA Last administered on 23:10; Admin Dose 10 MG; Start 04/03/17 at 07:30 Benazepril HCl (Lotensin) 10 mg DAILY PO Last administered on 04/06/17 08:04; Admin Dose 10 MG; Start 04/03/17 at 09:00 Atorvastatin Calcium 20 mg 20 mg DAILY@21 PO Last administered on 04/05/17 23: 03; Admin Dose 20 MG; Start 04/03/17 at 21:00 Potassium Chloride/Dextrose/ Sod Cl (D5-1/2ns + KCl 20 Meq) 1,000 ml @ 100 mls/ hr Q10H IV Last administered on 04/06/17 08:05; Admin Dose 100 MLS/HR; Start 04/03/17 at 12:00 Pantoprazole (Protonix Iv) 40 mg BID@06,18 IV Last administered on 04/05/17 23 :03; Admin Dose 40 MG; Start 04/03/17 at 18:00 Ondansetron HCl (Zofran Inj) 4 mg Q4H PRN IV NAUSEA AND/OR VOMITING Last administered on 04/04/17 10:57; Admin Dose 4 MG; Start 04/03/17 at 12:00 Tramadol HCl (Ultram) 50 mg Q6H PRN GTB PAIN Last administered on 04/03/17 20: 49; Admin Dose 50 MG; Start 04/03/17 at 20:00 VANITA BROWN April 06, 2017 11:02
[2017-04-06 11:53] LABS: BASOPHILS % 0.4 % (0.0-2.0); EOSINOPHILS # 0.6 10^3/ul (0.0-0.5); EOSINOPHILS % 6.2 % (0.0-7.0); HEMATOCRIT 30.8 % (42.0-52.0); LYMPHOCYTES # 1.8 10^3/ul (0.8-2.9); LYMPHOCYTES % 18.7 % (15.0-51.0); MEAN CORPUSCULAR HEMOGLOBIN 30.8 pg (29.0-33.0); MEAN CORPUSCULAR HGB CONC 32.5 g/dl (32.0-37.0); MEAN CORPUSCULAR VOLUME 94.8 fl (82.0-101.0); MEAN PLATELET VOLUME 9.9 fl (7.4-10.4); MONOCYTE # 0.8 10^3/ul (0.3-0.9); MONOCYTES % 8.6 % (0.0-11.0); NEUTROPHIL # 6.4 10^3/ul (1.6-7.5); NEUTROPHILS % 65.7 % (39.0-77.0); PLATELET COUNT 280 10^3/UL (140-415); RED BLOOD COUNT 3.25 10^6/ul (4.70-6.10); RED CELL DISTRIBUTION WIDTH 13.5 % (11.5-14.5); WHITE BLOOD COUNT 9.8 10^3/ul (4.8-10.8)
--- NOTE | 2017-04-06 15:38 | PDOCDIS ---
Discharge Instructions CONDITION Patient Condition: Stable HOME CARE INSTRUCTIONS: Special Diet: soft diet ACTIVITY: Activity Restrictions: Slowly Increase Activity Rest between Activity Avoid heavy lifting Do not operate Machinery Do not operate Power Tool Avoid Heavy Housework Bathing Restrictions: Sponge Bath FOLLOW UP/APPOINTMENTS Appointments FU withPrimary MD X 1 week FU with Gi MD as recommended Call 911 or go to the nearest hospital if symptoms worsen DW VANITA Beebe April 06, 2017 15:38
[2017-04-06] MEDS ORDERED: DOCU-144 PO (15:43)
[2017-04-06] MEDS ORDERED: BENA10TA48 PO (15:43)
[2017-04-06] MEDS ORDERED: PANT40TA3 PO (15:43)
--- NOTE | 2017-04-06 15:47 | DS ---
Date/Time of Note Date/Time of Note DATE: 04/06/17 TIME: 15:47 Discharge Summary Admission/Discharge Info Admit Date/Time April 03, 2017 at 07:30 Discharge Date/Time Patient Condition: Stable Home Meds Active Scripts Docusate Sodium* (Colace*) 100 Mg Capsule, 100 MG PO BID, #60 CAP Prov:VANITA BROWN 04/06/17 Pantoprazole* (Protonix*) 40 Mg Tablet.dr, 40 MG PO DAILY, #30 TAB Prov:VANITA BROWN 04/06/17 Benazepril Hcl* (Benazepril Hcl*) 10 Mg Tablet, 10 MG PO DAILY for 30 Days, TAB Prov:VANITA BROWN 04/06/17 Reported Medications Zolpidem Tartrate* (Zolpidem Tartrate*) 10 Mg Tablet, 10 MG PO QHS Y for INSOMNIA, #30 TAB 04/02/17 Ramipril (Ramipril) 5 Mg Capsule, 2.5 MG PO DAILY, CAP 04/02/17 Cholecalciferol (Vitamin D3) (VITAMIN D-3) 2,000 Unit Capsule, 2000 UNIT PO DAILY, CAP 04/02/17 Metoprolol Succinate* (Toprol XL*) 50 Mg Tab.er.24h, 50 MG PO DAILY, #30 TAB 04/02/17 Aspirin* (Aspirin* EC) 81 Mg Tablet.dr, 81 MG PO DAILY, TAB 04/02/17 Simvastatin* (Zocor*) 40 Mg Tablet, 40 MG PO QHS, #30 TAB 04/02/17 Ranitidine Hcl* (Ranitidine Hcl*) 150 Mg Tablet, 150 MG PO Q12, #60 TAB 04/02/17 Folic Acid* (Folic Acid*) 1 Mg Tablet, 1 MG PO DAILY, TAB 04/02/17 Primary Care Provider Not On Staff Doctor Pending Labs Laboratory Tests Test 04/06/17 07:15 White Blood Count 9.810^3/ul (4.8-10.8) Red Blood Count 3.2510^6/ul (4.70-6.10) Hemoglobin 10.0g/dl (14.0-18.0) Hematocrit 30.8% (42.0-52.0) Mean Corpuscular Volume 94.8fl (82.0-101.0) Mean Corpuscular Hemoglobin 30.8pg (29.0-33.0) Mean Corpuscular Hemoglobin Concent 32.5g/dl (32.0-37.0) Red Cell Distribution Width 13.5% (11.5-14.5) Platelet Count 04180^3/UL (140-415) Mean Platelet Volume 9.9fl (7.4-10.4) Neutrophils % 65.7% (39.0-77.0) Lymphocytes % 18.7% (15.0-51.0) Monocytes % 8.6% (0.0-11.0) Eosinophils % 6.2% (0.0-7.0) Basophils % 0.4% (0.0-2.0) Nucleated Red Blood Cells % 0.0/100WBC (0.0-0.0) Neutrophils # 6.410^3/ul (1.6-7.5) Lymphocytes # 1.810^3/ul (0.8-2.9) Monocytes # 0.810^3/ul (0.3-0.9) Eosinophils # 0.610^3/ul (0.0-0.5) Basophils # 0.010^3/ul (0.0-0.1) Nucleated Red Blood Cells # 0.010^3/ul (0.0-0.0) Sodium Level 139mmol/L (135-144) Potassium Level 3.9mmol/L (3.5-5.1) Chloride Level 101mmol/L (97-110) Carbon Dioxide Level 27mmol/L (21-31) Anion Gap 15 (8-16) Blood Urea Nitrogen 8mg/dl (7-20) Creatinine 0.99mg/dl (0.61-1.24) Glucose Level 113mg/dl (70-220) Calcium Level 9.0mg/dl (8.4-10.2) VANITA BROWN April 06, 2017 15:47
[2017-04-06] MEDS ORDERED: ASPIRIN (EC) 81 MG TAB PO SCH (16:00)
[2017-04-06] MEDS: PANTOPRAZOLE 40 MG INJ IV SCH (17:22)
== END 2017-04-06 19:30 | disposition home or self-care (01) | DRG 378 ==
LOC: E/R 18:49 → MS4 04-03 00:14 → OBSVTOIN 04-03 07:30
PROVIDERS: ADMIT Internal Medicine; ATTEND Internal Medicine
PROC: 0DB78ZX Excision of Stomach, Pylorus, Via Natural or Artificial Opening Endoscopic, Diagnostic (ICD-10-PCS; 2017-04-04)
PROC: 0W3P8ZZ Control Bleeding in Gastrointestinal Tract, Via Natural or Artificial Opening Endoscopic (ICD-10-PCS; principal; 2017-04-04 12:00)
DX: K25.0 Acute gastric ulcer with hemorrhage (principal); Z68.41 Body mass index [BMI] 40.0-44.9, adult; I10 Essential (primary) hypertension; E66.01 Morbid (severe) obesity due to excess calories; I25.10 Atherosclerotic heart disease of native coronary artery without angina pectoris; G47.00 Insomnia, unspecified; E78.5 Hyperlipidemia, unspecified; K29.51 Unspecified chronic gastritis with bleeding; B96.81 Helicobacter pylori [H. pylori] as the cause of diseases classified elsewhere; I25.2 Old myocardial infarction; Z95.1 Presence of aortocoronary bypass graft
CPT/HCPCS: 36415; 70450; 71010; 74176; 80048; 80053; 84484; 85025; 85610; 85730; 86850; 86900; 86901; 88305; 88312; 93005; 93306; 96374; 96375; 96376; G0378; C9113; J2250; J2405; J3010; J3480; J7030